=== PATIENT | male | born 1985 | race Caucasian/White ===

== ENCOUNTER 2018-11-22 19:24 | Emergency (ER) | payer SELFPAY ==
[~2018-11-22] VITALS: Ht 170.2 cm; Wt 81.6 kg
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
== END 2018-11-22 21:45 | disposition home or self-care (01) ==
LOC: FSED 19:24
DX: M54.6 Pain in thoracic spine (principal); S23.3XXA Sprain of ligaments of thoracic spine, initial encounter; M54.2 Cervicalgia; M54.5 Low back pain; V43.53XA Car driver injured in collision with pick-up truck in traffic accident, initial encounter; Y92.488 Other paved roadways as the place of occurrence of the external cause
CPT/HCPCS: 72040; 72070; 72100; 99283